=== PATIENT | female | born 1955 | race Caucasian/White ===

== ENCOUNTER 2016-12-08 06:40 | Day surgery (SDC) | payer MEDICAID ==
[~2016-12-08] VITALS: Ht 162.6 cm; Wt 78.5 kg
[2016-12-08] MEDS ORDERED: LIDOCAINE 2% 100 MG/5 ML UJET TP ONE (07:55)
[2016-12-08] MEDS ORDERED: MIDAZOLAM 2 MG/2 ML VIAL ONE (07:55)
[2016-12-08] MEDS ORDERED: fentaNYL 0.05 MG/ML VIAL ONE (07:55)
== END 2016-12-08 08:55 | disposition home or self-care (01) ==
LOC: MDS 06:40 → MMU 06:41 → MDS 08:55
PROVIDERS: ATTEND Internal Medicine Gastroenterology
DX: Z12.11 Encounter for screening for malignant neoplasm of colon (principal); K21.9 Gastro-esophageal reflux disease without esophagitis; E66.09 Other obesity due to excess calories; Z68.31 Body mass index [BMI] 31.0-31.9, adult; Z79.899 Other long term (current) drug therapy
CPT/HCPCS: 43235; 45378; J2250; J7030; J3010